=== PATIENT | male | born 2005 | race Caucasian/White ===

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

== ENCOUNTER 2024-06-01 11:48 | Emergency (ER) | payer OTHER, SELFPAY ==
[2024-06-01 12:09] VITALS: BP 138/75; PULSE 48; RESP 18; TEMP 36.7; O2SAT 100; BMI 32.3
--- NOTE | 2024-06-01 12:46 | W.ED.NAVMDI ---
HPI - Nausea/Vomiting/Diarrhea General: Chief complaint: Nausea/Vomiting/Diarrhea Stated complaint: abd. pain, v Time Seen by Provider: 06/01/24 12:36 History of Present Illness: This is a healthy 18-year-old male who presents emergency room with nausea and vomiting. He has some epigastric discomfort. No other abdominal pain. No diarrhea. No fevers. No chest pain. No shortness of breath. No altered mental status. He does report smoking marijuana. Related Data Previous Rx's Medication Instructions Recorded naproxen 500 mg tablet (Naprosyn) 500 mg PO BID PRN pain #20 tabs 06/10/23 ondansetron 8 mg disintegrating 8 mg PO Q6H #14 tabs 06/01/24 tablet Allergies Allergy/AdvReac Type Severity Reaction Status Date / Time No Known Allergies Allergy Verified 06/18/23 14:46 Review of Systems Narrative: Constitutional symptoms: Negative except as documented in HPI. Skin symptoms: Negative except as documented in HPI. Eye symptoms: Negative except as documented in HPI. ENMT symptoms: Negative except as documented in HPI. Respiratory symptoms: Negative except as documented in HPI. Cardiovascular symptoms: Negative except as documented in HPI. Gastrointestinal symptoms: Negative except as documented in HPI. Genitourinary symptoms: Negative except as documented in HPI. Musculoskeletal symptoms: Negative except as documented in HPI. Neurologic symptoms: Negative except as documented in HPI. Psychiatric symptoms: Negative except as documented in HPI. Endocrine symptoms: Negative except as documented in HPI. [facility] PFSH: Medical History No pertinent past medical history Social History Smoking and tobacco/nicotine status: never used tobacco/nicotine Alcohol intake: never Substance/Drug Use: never Physical Exam Narrative: EXAM NARRATIVE: General: Alert, no acute distress. Skin: Warm, dry. Head: Normocephalic, atraumatic. Neck: Supple, trachea midline. Eye: Extraocular movements are intact. Ears, nose, mouth and throat: Tacky oral mucosa Cardiovascular: Regular, Normal peripheral perfusion. Respiratory: Lungs are clear to auscultation, respirations are non-labored, breath sounds are equal, Symmetrical chest wall expansion. Gastrointestinal: Soft, some epigastric discomfort, Non distended Musculoskeletal: Normal ROM, no deformity. Neurological: Alert and oriented, No focal neurological deficit observed. Psychiatric: Cooperative, appropriate mood & affect. Course Vital Signs: Vital signs: Vital Signs Temperature 98.1 F 06/01/24 12:09 Pulse Rate 48 L 06/01/24 12:09 Respiratory Rate 18 06/01/24 12:09 Blood Pressure 138/75 06/01/24 12:09 Pulse Oximetry 100 06/01/24 12:09 Oxygen Delivery Me thod Room Air 06/01/24 12:09 MDM - Nausea/Vomiting/Diarrhea Medical Decision Making Medical decision making: Differential diagnosis for this patient with nausea and vomiting including but not limited to and based on the above HPI, review of systems and physical exam: Urinary tract infection. Appendicitis. Cholecystis. colitis. small bowel obstruction. crohn's flare. pancreatitis. gastritis. peptic ulcer. cyclic vomiting. Viral illness. Influenza. COVID. - Workup - labwork and imaging ordered to evaluate, rule in and rule out above pathologies. Lab Review: Laboratory results were reviewed and interpreted by myself the emergency room physician. Lab work is unremarkable. Mild leukocytosis with white count 13. Hemoglobin mildly high at 16. BUN/creatinine are 14 and 0.9. Drug screen is positive for marijuana. Urinalysis is negative for infection. I reviewed the patient's medical record. Reexamination: Patient does feel quite a bit better at this point. No increased work of breathing. No altered mental status. He has been somnolent. We discussed that this could be hyperemesis related to marijuana use and he expresses understanding. His girlfriend is with him says that she has had that in the past as well. Assessment and plan: Nausea and vomiting Dehydration ? IV Zofran given initially. Then Benadryl and Compazine were given. Also Toradol for his abdominal pain and IV Pepcid. - Discharged home - Discussed plan with patient. Answered any questions. - Evaluation and treatment of this problem were appropriate in the emergency setting. Lab Data 06/01/24 12:48 06/01/24 12:48 Laboratory Results WBC 13.14 10^3/uL (4.5-13.0) H 06/01/24 12:48 RBC 5.30 10^6/uL (3.85-5.65) 06/01/24 12:48 Hgb 16.40 g/dL (13.2-15.6) H 06/01/24 12:48 Hct 46.9 % (37-53) 06/01/24 12:48 MCV 88.5 fl (82-101) 06/01/24 12:48 MCH 30.9 pg (27-33) 06/01/24 12:48 MCHC 35.0 g/dL (30-55) 06/01/24 12:48 RDW 11.9 % (12.1-15.1) L 06/01/24 12:48 Plt Count 208 10^3/cmm (157-399) 06/01/24 12:48 MPV 10.4 fL (7.4-10.4) 06/01/24 12:48 Neut % (Auto) 90.1 % 06/01/24 12:48 Lymph % (Auto) 5.6 % 06/01/24 12:48 [place] % (Auto) 3.3 % 06/01/24 12:48 Eos % (Auto) 0.1 % 06/01/24 12:48 Baso % (Auto) 0.2 % 06/01/24 12:48 Neut # (Auto) 11.84 10^3/uL (1.8-8.0) H 06/01/24 12:48 Lymph # (Auto) 0.7 10^3/uL (1.5-6.5) L 06/01/24 12:48 [place] # (Auto) 0.4 10^3/uL (0.2-0.9) 06/01/24 12:48 Eos # (Auto) 0.0 10^3/uL (0.0-0.8) 06/01/24 12:48 Baso # (Auto) 0.0 10^3/uL (0.0-0.1) 06/01/24 12:48 Nucleated RBC % (auto) 0 % 06/01/24 12:48 Nucleated RBCs # 0.0 /100WBC 06/01/24 12:48 Sodium 137 mmol/L (136-145) 06/01/24 12:48 Potassium 3.5 mmol/L (3.5-5.1) 06/01/24 12:48 Chloride 100 mmol/L (98-107) 06/01/24 12:48 Carbon Dioxide 23 mmol/L (22-29) 06/01/24 12:48 Anion Gap 17.5 (5-19) 06/01/24 12:48 BUN 14 mg/dL (6-20) 06/01/24 12:48 Creatinine 0.9 mg/dL (0.7-1.2) 06/01/24 12:48 GFR Calculation 108.7 mL/min (90-130) 06/01/24 12:48 Glucose 135 mg/dL (65-115) H 06/01/24 12:48 Calculated Osmolality 287 mOsm/kg (285-295) 06/01/24 12:48 Calcium 9.7 mg/dL (8.5-10.5) 06/01/24 12:48 Total Bilirubin 0.5 mg/dL (0.15-1.2) 06/01/24 12:48 AST 15 U/L (0-40) 06/01/24 12:48 ALT 12 U/L (0-41) 06/01/24 12:48 Alkaline Phosphatase 53 U/L (40-130) 06/01/24 12:48 Total Protein 8.0 g/dL (6.6-8.7) 06/01/24 12:48 Albumin 4.8 g/dL (3.5-5.2) 06/01/24 12:48 Globulin 3.2 g/dL (1.3-4.6) 06/01/24 12:48 Urine Color Yellow (Yellow) 06/01/24 13:43 Urine Appearance Clear (CLEAR) 06/01/24 13:43 Urine pH >=9.0 (5-7) A 06/01/24 13:43 Ur Specific [place] 1.019 (1.005-1.030) 06/01/24 13:43 Urine Protein Negative (Negative) 06/01/24 13:43 Urine Glucose (UA) Negative (Normal) 06/01/24 13:43 Urine Ketones 1+ (Negative) H 06/01/24 13:43 Urine Blood Negative (Negative) 06/01/24 13:43 Urine Nitrate Negative (Negative) 06/01/24 13:43 Urine Bilirubin Negative (Negative) 06/01/24 13:43 Urine Urobilinogen 1.0 mg/dL (Negative) 06/01/24 13:43 Ur Leukocyte Esterase Negative (Negative) 06/01/24 13:43 Urine RBC 0-2 /hpf (0-2) 06/01/24 13:43 Urine WBC 0-5 /hpf (0-5) 06/01/24 13:43 Ur Squamous Epith Cells 0-5 /hpf (0-5) 06/01/24 13:43 Amorphous Sediment Not Reportable 06/01/24 13:43 Urine Bacteria None seen /hpf (NONE) 06/01/24 13:43 Hyaline Casts 0.40 /lpf 06/01/24 13:43 Urine Opiates Screen Negative ng/mL (Negative) 06/01/24 13:43 Ur Barbiturates Screen Negative ng/mL (Negative) 06/01/24 13:43 Ur Phencyclidine Scrn Negative ng/mL (Negative) 06/01/24 13:43 Ur Amphetamines Screen Negative ng/mL (Negative) 06/01/24 13:43 U Benzodiazepines Scrn Negative ng/mL (Negative) 06/01/24 13:43 Urine Cocaine Screen Negative ng/mL (Negative) 06/01/24 13:43 U Marijuana (THC) Screen Positive ng/mL (Negative) H 06/01/24 13:43 No radiology studies performed this visit Discharge Plan Discharge Patient Disposition: Home Clinical Impression: Vomiting, Dehydration Condition: Stable Prescriptions: New ondansetron 8 mg tablet,disintegrating 8 mg PO Q6H Qty: 14 0RF Rx Instructions: Take 1/2-1 tab every 6 hours as needed for nausea and vomiting No Action Naprosyn 500 mg tablet 500 mg PO BID PRN (Reason: pain) Qty: 20 0RF Discharge Orders: Discharge ED (Routine); Ordered 06/01/24 Ordered By: Анна Shah Discharge Diet: Advance as tolerated Discharge Activity: Increase activity as tolerated Patient Instructions: Acute Nausea and Vomiting (ED) Activity Restrictions/Additional Instructions: Thank you for choosing [facility] for your healthcare needs today. Please realize this is an emergency room and that we are providing you with a medical screening exam and this may not be complete and all inclusive of all the testing and or work up that you may need to determine your ailment or severity of your illness. You have been screened and evaluated and felt safe for discharge. Health conditions do change or evolve sometimes and as such it is important that you follow up with your Primary Doctor to be re checked, 3-5 days is a general good time frame for follow up. You are always welcome to return to the ED for re assessment if your symptoms are worsening or you have new concerns Coding Level of Care Code ED Human Resources Administrator for Emir Starks
[2024-06-01] MEDS: sodium chloride 0.9% 1,000 ML 999 ML IV (12:49)
[2024-06-01] MEDS: ondansetron 2 mg/ML SDV 2 mL 8 MG IVP (12:49)
[2024-06-01 12:53] LABS: Basophils % 0.2 %; Eosinophils % 0.1 %; Hematocrit 46.9 % (37-53); Lymphocytes # 0.7 10^3/uL (1.5-6.5); Lymphocytes % 5.6 %; Mean Corpuscular Hemoglobin 30.9 pg (27-33); Mean Corpuscular Volume 88.5 fl (82-101); Mean Platelet Volume 10.4 fL (7.4-10.4); Monocytes # 0.4 10^3/uL (0.2-0.9); Monocytes % 3.3 %; Neutrophils # 11.84 10^3/uL (1.8-8.0); Neutrophils % 90.1 %; Nucleated Red Blood Cells % 0 %; Platelet Count 208 10^3/cmm (157-399); Red Cell Distribution Width 11.9 % (12.1-15.1); White Blood Count 13.14 10^3/uL (4.5-13.0)
[2024-06-01 13:11] LABS: Alanine Aminotransferase 12 U/L (0-41); Albumin Level 4.8 g/dL (3.5-5.2); Alkaline Phosphatase 53 U/L (40-130); Anion Gap 17.5 (5-19); Aspartate Amino Transferase 15 U/L (0-40); Blood Urea Nitrogen 14 mg/dL (6-20); Calcium 9.7 mg/dL (8.5-10.5); Carbon Dioxide 23 mmol/L (22-29); Chloride 100 mmol/L (98-107); Creatinine Clr Calc Pharmacy 158.0155; Globulin 3.2 g/dL (1.3-4.6); Glomerular Filtration Rate 108.7 mL/min (90-130); Glucose 135 mg/dL (65-115); Osmolality Calculated 287 mOsm/kg (285-295); Potassium 3.5 mmol/L (3.5-5.1); Sodium 137 mmol/L (136-145); Total Bilirubin 0.5 mg/dL (0.15-1.2)
[2024-06-01 13:54] LABS: Bilirubin Urine Negative (Negative); Blood Urine Negative (Negative); Glucose Urine UA Negative (Normal); Ketones Urine 1+ (Negative); Leukocyte Esterase Urine Negative (Negative); Nitrate Urine Negative (Negative); Protein Urine Negative (Negative); Specific Gravity, Urine 1.019 (1.005-1.030); Urine Appearance Clear (CLEAR); Urine Color Yellow (Yellow); pH Urine >=9.0 (5-7)
[2024-06-01 13:59] LABS: Add Urine Microscopic? YES; Bacteria Urine None Seen /hpf; RBC Urine 0-2 /hpf (0-2); Squamous Epithelial Cell Urine 0-5 /hpf (0-5); WBC Urine 0-5 /hpf (0-5)
[2024-06-01 14:05] LABS: Amphetamines Screen Urine Negative (Negative); Barbiturates Screen Urine Negative (Negative); Benzodiazepines Screen Urine Negative (Negative); Cocaine Screen Urine Negative (Negative); Opiate Screen Urine Negative (Negative); PCP Screen Urine Negative (Negative); THC Screen Urine Positive (Negative)
[2024-06-01] MEDS: diphenhydrAMINE 50 mg/mL SDV 1mL IVP (14:13)
[2024-06-01] MEDS: prochlorperazine 10 mg/2 mL Inj IVP (14:14)
[2024-06-01] MEDS: ketorolac 30 mg/mL INJ IVP (14:16)
[2024-06-01] MEDS: famotidine 20 mg/2 mL INJ 40 MG IVP (14:16)
[2024-06-01 16:24] VITALS: BP 160/80; PULSE 49; RESP 17; O2SAT 100
== END 2024-06-01 16:26 | disposition home or self-care (01) ==
PROVIDERS: Emergency Medicine; Emergency Provider Emergency Medicine
DX: R11.11 Vomiting without nausea (principal); E86.0 Dehydration
CPT/HCPCS: 80053; 80306; 81001; 85025; 96374; 96375; 99284; J0780; J1200; J1885; J2405; J3490; J7030

== ENCOUNTER 2024-10-10 08:38 | Emergency (ER) | payer OTHER, SELFPAY ==
[2024-10-10 08:59] VITALS: BP 120/57; PULSE 50; RESP 16; TEMP 36.4; O2SAT 98; BMI 33.0
--- NOTE | 2024-10-10 09:21 | W.ED.NAVMDI ---
HPI - Nausea/Vomiting/Diarrhea General: Chief complaint: Nausea/Vomiting/Diarrhea Stated complaint: vomitting Time Seen by Provider: 10/10/24 08:44 History of Present Illness: 19-year-old male presents emergency room with complaints of persistent nausea vomiting abdominal pain and cramping patient regularly uses marijuana he has a history of cannabinoid hyperemesis syndrome. He denies any medic easy melena hematemesis coffee-ground emesis. Symptoms began overnight. He last smoked marijuana last night he has had recurrent bilious vomiting. Associated nausea: Yes Associated symtoms: Reports nausea; Denies chest pain or dysuria Related Data Home Medications ?Medication ?Instructions ?Recorded ?Confirmed acetaminophen 325 mg tablet 325 mg PO QID PRN Pain 10/10/24 10/10/24 Previous Rx's ?Medication ?Instructions ?Recorded lorazepam 2 mg tablet (Ativan) 2 mg buccal TID PRN nausea and 10/10/24 vomiting #10 tabs olanzapine 10 mg disintegrating 10 mg PO Q8H PRN nausea and 10/10/24 tablet vomiting #10 tabs Allergies Allergy/AdvReac Type Severity Reaction Status Date / Time No Known Allergies Allergy Verified 10/03/24 16:08 Review of Systems Const: Denies: fever(s) or chills Card: Denies: chest pain Resp: Denies: dyspnea GI: Reports: abdominal pain, nausea and vomiting : Denies: dysuria, urinary frequency or urinary urgency Musc: Denies: neck pain or back pain Skin/Breast: Denies: rash PFSH ED PFSH: Medical History No pertinent past medical history Social History Smoking and tobacco/nicotine status: never used tobacco/nicotine Alcohol intake: never Substance/Drug Use: never Physical Exam Const: GENERAL APPEARANCE: cooperative ORIENTATION/CONSCIOUSNESS: Yes awake, Yes oriented to person, Yes oriented to place and Yes oriented to time HENMT: COMMON NORMALS: normocephalic, atraumatic and hearing grossly normal bilaterally HEAD & SCALP: normocephalic and atraumatic Resp: COMMON NORMALS: normal respiratory effort, No retractions, No use of accessory muscles and clear to auscultation bilaterally AUSCULTATION: clear to auscultation bilaterally Cardio: COMMON NORMALS: regular rate, regular rhythm and No murmurs present (Cardio) RATE: regular rate RHYTHM: regular rhythm GI: COMMON NORMALS: Soft to palpation and No hepatosplenomegaly present AUSCULTATION: Yes normoactive bowel sounds PALPATION: Yes Soft to palpation, No Tenderness to palpation present (GI), No Guarding due to palpation present (GI) and Yes No hepatosplenomegaly present Extremity: COMMON NORMALS: normal to inspection, capillary refill normal, no clubbing, cyanosis or edema, no calf tenderness and no pedal edema Neuro: SENSORIUM/ORIENTATION: Yes oriented to person, Yes oriented to place and Yes oriented to time Skin: COMMON NORMALS: no rashes or lesions noted GENERAL SKIN EXAM: no rashes or lesions noted Course Vital Signs: Vital signs: Vital Signs Temperature 97.5 F L 10/10/24 08:59 Pulse Rate 50 L 10/10/24 08:59 Respiratory Rate 16 10/10/24 08:59 Blood Pressure 120/57 10/10/24 08:59 Pulse Oximetry 98 10/10/24 08:59 Oxygen Delivery Me thod Room Air 10/10/24 08:59 MDM - Nausea/Vomiting/Diarrhea Medical Decision Making Improved after IV fluids Ativan and Haldol. Patient is amatory to get somewhat bradycardic he says he has had this in the past he is asymptomatic evident his blood pressure remained stable we will discharge him home with sublingual olanzapine and buccal Ativan to use as needed encouraged to decrease use of THC products Medical Records I reviewed the patient's medical records. Lab Data I reviewed the patient's lab results. 10/10/24 09:10 10/10/24 09:10 Laboratory Results WBC 11.98 10^3/uL (4.5-13.0) 10/10/24 09:10 RBC 5.17 10^6/uL (3.85-5.65) 10/10/24 09:10 Hgb 15.80 g/dL (13.2-15.6) H 10/10/24 09:10 Hct 46.0 % (37-53) 10/10/24 09:10 MCV 89.0 fl (82-101) 10/10/24 09:10 MCH 30.6 pg (27-33) 10/10/24 09:10 MCHC 34.3 g/dL (30-55) 10/10/24 09:10 RDW 12.0 % (12.1-15.1) L 10/10/24 09:10 Plt Count 261 10^3/cmm (157-399) 10/10/24 09:10 MPV 10.6 fL (7.4-10.4) H 10/10/24 09:10 Neut % (Auto) 84.4 % 10/10/24 09:10 Lymph % (Auto) 10.1 % 10/10/24 09:10 [place] % (Auto) 3.7 % 10/10/24 09:10 Eos % (Auto) 0.8 % 10/10/24 09:10 Baso % (Auto) 0.3 % 10/10/24 09:10 Neut # (Auto) 10.13 10^3/uL (1.8-8.0) H 10/10/24 09:10 Lymph # (Auto) 1.2 10^3/uL (1.5-6.5) L 10/10/24 09:10 [place] # (Auto) 0.4 10^3/uL (0.2-0.9) 10/10/24 09:10 Eos # (Auto) 0.1 10^3/uL (0.0-0.8) 10/10/24 09:10 Baso # (Auto) 0.0 10^3/uL (0.0-0.1) 10/10/24 09:10 Nucleated RBC % (auto) 0 % 10/10/24 09:10 Nucleated RBCs # 0.0 /100WBC 10/10/24 09:10 Sodium 139 mmol/L (136-145) 10/10/24 09:10 Potassium 4.3 mmol/L (3.5-5.1) 10/10/24 09:10 Chloride 99 mmol/L (98-107) 10/10/24 09:10 Carbon Dioxide 23 mmol/L (22-29) 10/10/24 09:10 Anion Gap 21.3 (5-19) H 10/10/24 09:10 BUN 14 mg/dL (6-20) 10/10/24 09:10 Creatinine 0.9 mg/dL (0.7-1.2) 10/10/24 09:10 GFR Calculation 107.6 mL/min (90-130) 10/10/24 09:10 Glucose 169 mg/dL (65-115) H 10/10/24 09:10 Calculated Osmolality 292 mOsm/kg (285-295) 10/10/24 09:10 Calcium 10.1 mg/dL (8.5-10.5) 10/10/24 09:10 Total Bilirubin 0.4 mg/dL (0.15-1.2) 10/10/24 09:10 AST 19 U/L (0-40) 10/10/24 09:10 ALT 15 U/L (0-41) 10/10/24 09:10 Alkaline Phosphatase 58 U/L (40-130) 10/10/24 09:10 Total Protein 8.1 g/dL (6.6-8.7) 10/10/24 09:10 Albumin 5.0 g/dL (3.5-5.2) 10/10/24 09:10 Globulin 3.1 g/dL (1.3-4.6) 10/10/24 09:10 Lipase 17 U/L (13-60) 10/10/24 09:10 Urine Color Yellow (Yellow) 10/10/24 10:02 Urine Appearance Clear (CLEAR) 10/10/24 10:02 Urine pH >=9.0 (5-7) A 10/10/24 10:02 Ur Specific [place] 1.027 (1.005-1.030) 10/10/24 10:02 Urine Protein 1+ (Negative) A 10/10/24 10:02 Urine Glucose (UA) Trace (Normal) H 10/10/24 10:02 Urine Ketones 2+ (Negative) H 10/10/24 10:02 Urine Blood Negative (Negative) 10/10/24 10:02 Urine Nitrate Negative (Negative) 10/10/24 10:02 Urine Bilirubin Negative (Negative) 10/10/24 10:02 Urine Urobilinogen 1.0 mg/dL (Negative) 10/10/24 10:02 Ur Leukocyte Esterase Negative (Negative) 10/10/24 10:02 Urine RBC 0-2 /hpf (0-2) 10/10/24 10:02 Urine WBC 0-5 /hpf (0-5) 10/10/24 10:02 Ur Squamous Epith Cells 0-5 /hpf (0-5) 10/10/24 10:02 Amorphous Sediment Not Reportable 10/10/24 10:02 Urine Bacteria None seen /hpf (NONE) 10/10/24 10:02 Hyaline Casts 2.46 /lpf 10/10/24 10:02 All radiology interpretation(s) finalized by discharge Discharge Plan Discharge Patient Disposition: Home Clinical Impression: Cannabinoid hyperemesis syndrome Condition: Stable Prescriptions: New olanzapine 10 mg tablet,disintegrating 10 mg PO Q8H PRN (Reason: nausea and vomiting) Qty: 10 0RF lorazepam [Ativan] 2 mg tablet 2 mg buccal TID PRN (Reason: nausea and vomiting) Qty: 10 0RF No Action acetaminophen 325 mg Tablet 325 mg PO QID PRN (Reason: Pain) Discharge Orders: Discharge ED (Routine); Ordered 10/10/24 Ordered By: Elmer Ochoa Discharge Diet: Advance as tolerated and Clear Liquid Discharge Activity: Increase activity as tolerated Patient Instructions: Opioid Safety, Pain Management Activity Restrictions/Additional Instructions: Thank you for choosing [facility] for your healthcare needs today. It is very important that you follow up as instructed or that you return to the Emergency Department should you have concerns or if your condition changes or worsens in any way. You are seen in the emergency room for cannabinoid hyperemesis. You did respond well to medications. You were given lorazepam and olanzapine to use as needed for recurrent symptoms. Print Language: Turkmen Coding Level of Care Code ED Manager Express for Emir Starks
[2024-10-10 09:31] LABS: Basophils % 0.3 %; Eosinophils # 0.1 10^3/uL (0.0-0.8); Eosinophils % 0.8 %; Lymphocytes # 1.2 10^3/uL (1.5-6.5); Lymphocytes % 10.1 %; Mean Corpuscular HGB Conc 34.3 g/dL (30-55); Mean Corpuscular Hemoglobin 30.6 pg (27-33); Mean Platelet Volume 10.6 fL (7.4-10.4); Monocytes # 0.4 10^3/uL (0.2-0.9); Monocytes % 3.7 %; Neutrophils # 10.13 10^3/uL (1.8-8.0); Neutrophils % 84.4 %; Nucleated Red Blood Cells % 0 %; Platelet Count 261 10^3/cmm (157-399); Red Blood Count 5.17 10^6/uL (3.85-5.65); White Blood Count 11.98 10^3/uL (4.5-13.0)
[2024-10-10 09:44] LABS: Alanine Aminotransferase 15 U/L (0-41); Alkaline Phosphatase 58 U/L (40-130); Anion Gap 21.3 (5-19); Aspartate Amino Transferase 19 U/L (0-40); Blood Urea Nitrogen 14 mg/dL (6-20); Calcium 10.1 mg/dL (8.5-10.5); Carbon Dioxide 23 mmol/L (22-29); Chloride 99 mmol/L (98-107); Creatinine Clr Calc Pharmacy 158.3896; Globulin 3.1 g/dL (1.3-4.6); Glomerular Filtration Rate 107.6 mL/min (90-130); Glucose 169 mg/dL (65-115); Lipase 17 U/L (13-60); Osmolality Calculated 292 mOsm/kg (285-295); Potassium 4.3 mmol/L (3.5-5.1); Sodium 139 mmol/L (136-145); Total Bilirubin 0.4 mg/dL (0.15-1.2); Total Protein 8.1 g/dL (6.6-8.7)
[2024-10-10 10:11] LABS: Bilirubin Urine Negative (Negative); Blood Urine Negative (Negative); Glucose Urine UA Trace (Normal); Ketones Urine 2+ (Negative); Leukocyte Esterase Urine Negative (Negative); Nitrate Urine Negative (Negative); Protein Urine 1+ (Negative); Specific Gravity, Urine 1.027 (1.005-1.030); Urine Appearance Clear (CLEAR); Urine Color Yellow (Yellow); pH Urine >=9.0 (5-7)
[2024-10-10 10:16] LABS: Add Urine Microscopic? YES; Bacteria Urine None Seen /hpf; Hyaline Casts Urine 2.46 /lpf; RBC Urine 0-2 /hpf (0-2); Squamous Epithelial Cell Urine 0-5 /hpf (0-5); WBC Urine 0-5 /hpf (0-5)
[2024-10-10] MEDS: haloperidol inj 5 mg/mL INJ 1 mL 2.5 MG IVP (10:20)
[2024-10-10] MEDS: LORazepam 2 mg/mL INJ 1 mL 1 MG IVP (10:24)
[2024-10-10] MEDS: sodium chloride 0.9% 1,000 ML 999 ML IV (11:10)
[2024-10-10 11:37] VITALS: BP 106/69; PULSE 58; RESP 16; O2SAT 96
== END 2024-10-10 11:40 | disposition home or self-care (01) ==
PROVIDERS: Emergency Provider Family Medicine
DX: R11.2 Nausea with vomiting, unspecified (principal)
CPT/HCPCS: 36415; 80053; 81001; 83690; 85025; 96374; 96375; 99284; J1630; J2060; J7030

== ENCOUNTER 2025-03-13 15:10 | Emergency (ER) | payer OTHER, SELFPAY ==
--- OUTSIDE RECORDS SUMMARY | 2024-10-28 08:00 | XMS_ITS ---
Author Organization [facility] [facility] edicine Address [address] [place] [address] Care Team Providers Care Associate Juvenile Court Judge Name Role Phone Aurea Perez Unavailable [phone] Allergies No Known Allergies REASON FOR VISIT VIDAL-IBC DH PRE EMP PHYS w/ PDT no DOT D/S, * Johnson Pre Emp NO DRUG SCREEN, * Johnson Pre-Employment Social History Tobacco Use: Social History Observation Description Date Details (start date - stop date) Unknown Smoking Question Answer Notes Smoking Status: Uses tobacco in other forms vape Vital Signs Heart Rate 63 /min 10/28/2024 Blood pressure systolic 130 mm Hg 10/29/19 25 Blood pressure diastolic 74 mm Hg 025 Height 71 in 10/28/2024 Weight 244.8 lbs 10/28/2024 BMI 34.14 kg/m2 10/28/2024 Respiratory Rate 18 /min 10/28/2024 Oximetry 96 % 10/28/2024 Procedures Procedure Date Ordered Date Performed Result Body Sit e Vision Screening 10/28/2024 N/A Hearing Screening 10/28/2024 10/28/2024 N/A BTE 10/28/2024 10/28/2024 N/A Encounters Encounter Location Date Provider Diagnosis [facility] [address] [place] [address] 10/28/2024 Aureaerika Perez Pre-employment health screening examination Z02.1 Assessments Encounter Date Diagnosis (ICD Code) Assessment Notes Treatment Notes Treatment Clinical Notes Section Notes 10/28/2024 Pre-employment health screening examination (ICD-10 - Z02.1) Plan Of Treatment Pending Test Test Name Order Date Urinalysis, Routine 10/28/2024 Vision Screening 10/28/2024 Hearing Screening 10/28/2024 Next Appt Details Follow Up: Clear for PDT , R reece: Progress Notes * Christophe GIANG JDOB: [birth year] (19 yo M)Acc No.[id number]:10/28/2024 PRE EMP HWM Patient: Christophe MILLER Provider: Umesh Perez :2005 A ge:19 Y S ex:Male Date:10/28/2024 Address:[address] [place], [place] [id number] Subjective: * Chief Complaints: * 1 . VIDAL-IBC DH PRE EMP PHYS w/ PDT no DOT D/S. 2. * Johnson Pre Emp NO DRUG SCREEN. 3. * Johnson Pre-Employment. * HPI: A DDITIONAL COMPLAINTS: Patient presents for pre-employment physical evaluation. Medical history forms and any accompanying health records are reviewed with the patients. * ROS: G eneral/Constitutional: Denies C hange in appetite. D enies C hills. D enies F atigue. D enies F ever. D enies H eadache. D enies L ightheadedness. D enies S leep disturbance. D eleazar Review: Reviewed H ealth Records. R espiratory: Denies B reathing pattern. D enies C hest pain.?Denies C ough. D enies H emoptysis. D enies P ain with inspiration. D enies S hortness of breath at rest. D enies S hortness of breath with exertion. D enies?Sputum production. D enies W heezing. G astrointestinal: Denies A bdominal pain. D enies B lood in stool.?Denies C hange in bowel habits. D enies C onstipation. D enies D iarrhea.?Denies D ifficulty swallowing. D enies N ausea. D enies V omiting. ? N eurologic: Denies B alance difficulty. D enies C oordination.?Denies D ifficulty speaking. D enies D izziness. D enies F ainting. D enies G ait abnormality. D enies I rritability. D enies L oss of strength. D enies L oss of use of extremity. D enies L ow back pain. D enies P ain. D enies S eizures. D enies T ingling/Numbness. D enies T ransient loss of vision.?Denies T remor. P sychiatric: Denies A nxiety. D enies D epressed mood. D enies D ifficulty sleeping. D enies E ating disorder. D enies L oss of appetite.?Denies S tressors. D enies S ubstance abuse. D enies S uicidal thoughts. * Medical History: B roken collar bone. * Surgical History: D enies Past Surgical History. * Hospitalization/Major Diagno stic Procedure: D enies Past Hospitalization. * Family History: N on-Contributory. * Social History: T obacco Use: S moking S moking Status: U ses tobacco in other forms vape * Medications: N one * Allergies: N .K.D.A. Objective: * Vitals: H R:63, BP:130/74mm Hg, Ht: 71, Wt: 244.8, BMI:34.14Index, RR: 18, Oxygen sat %:96%. * Examination: G eneral Examination: GENERAL APPEARANCE: i n no acute distress, well developed, well nourished. HEAD: n ormocephalic, atraumatic. EYES: p upils equal, round, reactive to light and accommodation. EARS: n ormal. ORAL CAVITY: m ucosa moist. THROAT: c lear. NECK/THYROID: n matheus supple, full range of motion, no cervical lymphadenopathy. SKIN: n o suspicious lesions, warm and dry. HEART: n o murmurs, regular rate and rhythm, S1, S2 normal.? LUNGS: c lear to auscultation bilaterally. ABDOMEN: n ormal, bowel sounds present, soft, nontender, nondistended, no hernias noted on exam.. EXTREMITIES: n o clubbing, cyanosis, or edema, full range of motion, no painful joints. NEUROLOGIC: n onfocal, motor strength normal upper and lower extremities, sensory exam intact. Assessment: * Assessment: 1. P re-employment health screening examination - Z02.1 (Primary) Plan: * Treatment: * Labs: * L ab: Urinalysis, Routine (Collection Date & Time - 10/28/2024) Value Reference Range U rine-Color yellow * A ppearance clear * S pecific Slater 1.025 * p H 7.0 * G lucose neg * P rotein neg * O ccult Blood trace-intact * B ilirubin neg * U robilinogen,Semi-Qn 0.2 * N itrite, Urine neg * K etones neg * W BC Esterase neg * abnormal resultsHamblin, Corina vernon 10/28/2024 01:40:03 PM BROACH OPERATOR > * Procedure Orders: * P rocedure: Vision Screening ?Procedure: Hearing Screening (Performed Date - 10/28/2024)* Value Reference Range H z 500 Left 5 * H z 1000 Left 5 * H z 2000 Left 0 * H z 3000 Left 0 * H z 4000 Left 5 * H z 6000 Left 0 * H z 8000 Left 5 * H z 500 Right 5 * H z 1000 Right 5 * H z 2000 Right 0 * H z 3000 Right 0 * H z 4000 Right 0 * H z 6000 Right 0 * H z 8000 Right 0 * completed unaidedHamblin, Ab igail 10/28/2024 01:41:59 PM BROACH OPERATOR > ?Procedure: BTE (Performed Date - 10/28/2024)* Value Reference Range B TE Results Pass * LouiseLi juarez 10/28/2024 03 :22:13 PM BROACH OPERATOR > Pass * Procedure Codes: P HYSI Physical Exam, BTE Physical Demands Test, HEARS HEARING SCREEN, VISIS VISION SCREEN, 19447 URINALYSIS, AUTO, W/O SCOPE, Modifiers: QW * Follow Up: Jil choi for PDT * Billing Information: * Visit Code: * Procedure Codes: PHYSI Physical Exam. BTE Physical Demands Test. HEARS HEARING SCREEN. VISIS VISION SCREEN. 09699 URINALYSIS, AUTO, W/O SCOPE. Modifiers: QW * Electronic signature of Sandra Perez NP on 03/13/2025 at 03:16 PM CDT Sign off status: Pending * Provider: Umesh Perez Date: 0 10/28/2024 Generated for Marquita suarez/Faxing/eTransmitting on: 0 03/13/2025 03:16 PM CDT History and Physical Notes * HPI (History of Present Illness) Category Sub-Category Detail Notes Category Not es ADDITIONAL COMPLAINTS Patien t presents for pre-employment physical evaluation. Medical history forms and any accompanying health records are reviewed with the patients. Examination Category Sub-Category Detail Notes Category Not es General Examination GENERAL APPEARANCE: in no ac [place] distress, well developed, well nourished HEAD: normocephalic, atrau matic EYES: pupils equal, round, reactive to light and accommodation EARS: normal THROAT: clear NECK/THYROID: neck supple, full ra nge of motion, no cervical lymphadenopathy HEART: no murmurs, regular rate and rhythm, S1, S2 normal LUNGS: clear to auscultatio n bilaterally ABDOMEN: normal, bowel sounds present, soft, nontender, nondistended, no hernias noted on exam. NEUROLOGIC: nonfocal, motor stre ngth normal upper and lower extremities, sensory exam intact SKIN: no suspicious lesion s, warm and dry EXTREMITIES: no clubbing, cyanosi s, or edema, full range of motion, no painful joints ORAL CAVITY: mucosa moist
--- OUTSIDE RECORDS SUMMARY | 2025-03-13 15:15 | XMS_ITS | Continuity of Care Document ---
Author Name [facility] Organization [facility] Care Team Providers Care Aviation Neuropsychologist Name Role Phone [facility] Unavailable Unavailable Social History Combined list of available smoking, tobacco, and other social history from Department of Defense and Veterans Affairs facilities. Social History Type Response Date Comment Sourc e This section is an empty social history section. DoD
--- OUTSIDE RECORDS SUMMARY | 2025-03-13 15:16 | XMS_ITS | Patient Health Record ---
Author Organization [facility] edicine Address [address] [place] [address] Care Team Providers Care Wellness Educator Name Role Phone Aurea Perez Unavailable [phone] Allergies No Known Allergies Reason For Referral No Information Social History Tobacco Use: Social History Observation Description Date Details (start date - stop date) Unknown Smoking Question Answer Notes Smoking Status: Uses tobacco in other forms vape Vital Signs Heart Rate 63 /min 10/28/2024 Respiratory Rate 18 /min 10/28/2024 Oximetry 96 % 10/28/2024 Blood pressure diastolic 74 mm Hg 10/28/2024 Height 71 in 10/28/2024 Blood pressure systolic 130 mm Hg 10/28/2024 Weight 244.8 lbs 10/28/2024 BMI 34.14 kg/m2 10/28/2024 Procedures Procedure Date Ordered Date Performed Result Body Sit e Vision Screening 10/28/2024 N/A Hearing Screening 10/28/2024 10/28/2024 N/A BTE 10/28/2024 10/28/2024 N/A Encounters Encounter Location Date Provider Diagnosis [address] [place] [address] 10/28/2024 Aurea Perez Pre-employment health screening examination Z02.1 Assessments Encounter Date Diagnosis (ICD Code) Assessment Notes Treatment Notes Treatment Clinical Notes Section Notes 10/28/2024 Pre-employment health screening examination (ICD-10 - Z02.1) Plan Of Treatment Pending Test Test Name Order Date Urinalysis, Routine 10/28/2024 Vision Screening 10/28/2024 Hearing Screening 10/28/2024 Insurance Providers Payer Name Payer Address Payer Phone Subscriber Number Group Number Insured Name Patient Relationship to Insured Coverage Start Date Coverage End Date [employer] Pre-Emp Alexey Santoyo/Barber carmona Christophe Giang Self - patient is the insured Medical (General) History Medical History History ICD Code broken collar bone
[2025-03-13 15:24] VITALS: BP 141/84; PULSE 79; RESP 16; TEMP 36.6; O2SAT 98; BMI 30.1
[2025-03-13 16:54] LABS: Hematocrit 48.8 % (37-53); Hemoglobin 17.10 g/dL (13.2-15.6); Mean Corpuscular HGB Conc 35.0 g/dL (30-55); Mean Corpuscular Hemoglobin 30.4 pg (27-33); Mean Corpuscular Volume 86.7 fl (82-101); Nucleated Red Blood Cells % 0 %; Platelet Count 281 10^3/cmm (157-399); Red Blood Count 5.63 10^6/uL (3.85-5.65); White Blood Count 19.82 10^3/uL (4.5-13.0)
[2025-03-13] MEDS: LORazepam 1 MG/0.5 ML injection IVP (17:06)
[2025-03-13] MEDS: haloperidol inj 5 mg/mL INJ 1 mL IVP (17:06)
[2025-03-13 17:14] LABS: Alanine Aminotransferase 17 U/L (0-41); Albumin Level 5.1 g/dL (3.5-5.2); Alkaline Phosphatase 73 U/L (40-130); Anion Gap 27.6 (5-19); Aspartate Amino Transferase 24 U/L (0-40); Blood Urea Nitrogen 24 mg/dL (6-20); Calcium 11.2 mg/dL (8.5-10.5); Carbon Dioxide 20 mmol/L (22-29); Chloride 92 mmol/L (98-107); Creatinine Clr Calc Pharmacy 91.0018; Globulin 4.0 g/dL (1.3-4.6); Glucose 151 mg/dL (65-115); Osmolality Calculated 289 mOsm/kg (285-295); Potassium 3.6 mmol/L (3.5-5.1); Sodium 136 mmol/L (136-145); Total Protein 9.1 g/dL (6.6-8.7)
[2025-03-13 17:45] VITALS: BP 124/65; PULSE 49; O2SAT 100
--- NOTE | 2025-03-13 18:14 | ED_ITS ---
HPI - Nausea/Vomiting/Diarrhea 2 General: Chief complaint: Nausea/Vomiting/Diarrhea Stated complaint: Heat exhausion Time Seen by Provider: 03/13/25 16:08 History of Present Illness: 19-year-old male presents to the ED with complaint of vomiting and body aches. 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 He denies loss of consciousness but describes his legs becoming numb and feeling weak. After the episode, he reports his whole body was aching. He went to the bathroom, took a shower, and has been vomiting ever since. Patient self-identifies his condition as cannabinoid hyperemesis syndrome (CHS), stating this is his third episode. His last episode occurred approximately six months ago. He reports that during previous episodes, he was treated with a combination of medications that helped resolve his symptoms. Patient admits to daily cannabis use, including use today. He has attempted hot showers for symptom relief without improvement during this episode. Related Data Home Medications ?Medication ?Instructions ?Recorded ?Confirmed acetaminophen 325 mg tablet 325 mg PO QID PRN Pain 10/10/24 Previous Rx's ?Medication ?Instructions ?Recorded lorazepam 2 mg tablet (Ativan) 2 mg buccal TID PRN [place] and 10/10/24 vomiting #10 tabs olanzapine 10 mg disintegrating 10 mg PO Q8H PRN nause a and 10/10/24 tablet vomiting #10 tabs Allergies Allergy/AdvReac Type Severity Reaction Status Date / Time No Known Allergies Allergy Verified 03/13/25 15:27 [facility] ED 2 [facility]: Medical History (Updated 03/13/25 @ 18:15 by Adan Cooper MD) No pertinent past medical history Social History Smoking and tobacco/nicotine status: never used tobacco/nicotine Alcohol intake: never Substance/Drug Use: never Physical Exam 2 Const: COMMON NORMALS: no acute distress, average body habitus, alert and well nourished GENERAL APPEARANCE: cooperative ORIENTATION/CONSCIOUSNESS: Yes awake HENMT: COMMON NORMALS: normocephalic and atraumatic HEAD & SCALP: n ormocephalic and atraumatic Eye: COMMON NORMALS: conjunctivae normal CONJUNCTIVA: Yes conjunctivae normal Neck/C-Spine: GENERAL: Yes normal visual inspection Resp: COMMON NORMALS: normal respiratory effort, No retractions and No use of accessory muscles Cardio: COMMON NORMALS: regular rhythm and Peripheral pulses 2+ throughout RHYTHM: regular rhythm PERIPHERAL PULSES: Peripheral pulses 2+ throughout GI: COMMON NORMALS: Soft to palpation and non-tender PALPATION: Yes Soft to palpation Extremity: COMMON NORMALS: full ROM and no pedal edema Neuro: COMMON NORMALS: no focal motor deficits SENSORIUM/ORIENTATION: Yes alert Skin: COMMON NORMALS: no rashes or lesions noted GENERAL SKIN EXAM: no rashes or lesions noted Course 2 Vital Signs: Vital signs: Vital Signs Temperature 97.8 F 03/13/25 15:24 Pulse Rate 49 L 03/13/25 17:45 Respiratory Rate 16 03/13/25 15:24 Blood Pressure 124/65 03/13/25 17:45 Pulse Oximetry 100 03/13/25 17:45 Oxygen Delivery Me thod Room Air 03/13/25 15:24 MDM - Nausea/Vomiting/Diarrhea Medical Decision Making ROS: Constitutional: Positive for weakness and body aches. Gastrointestinal: Positive for vomiting. Neurological: Positive for leg numbness. All other systems reviewed and negative. MEDICATIONS AND ALLERGIES: - Meds: None reported - Allergies: No known drug allergies PAST HISTORICAL DATA: - PMH: History of cannabinoid hyperemesis syndrome with two prior episodes - PSH: No surgical history reported - Social: Daily cannabis use, denies cigarette use, denies other drug use VITAL SIGNS: No specific vital signs were verbalized during the encounter. PHYSICAL EXAM: General: Alert, appears uncomfortable due to nausea/vomiting and pain. HEENT: Head normocephalic and atraumatic. Mucous membranes moist. Neck: Supple Respiratory: No increased work of breathing, no wheezing Cardiac: Regular rate and rhythm, 2+ pulses in all extremities Abdomen: Soft, non-distended, no rebound or guarding Neuro: Cranial nerves grossly intact, no focal motor or sensory deficits noted INITIAL IMPRESSION AND PLAN: Given the history and presentation, the primary working diagnosis is cannabinoid hyperemesis syndrome with dehydration. Additional considerations include heat exhaustion given his history of working on a roof and subsequent collapse, acute gastroenteritis, and other causes of vomiting. Based on this initial impression I will order: 1. IV fluid hydration with normal saline 2. Antiemetic medication 3. Pain management 4. Laboratory studies to assess for dehydration and electrolyte abnormalities 5. Sedation with Haldol and Versed for symptom control TEST INTERPRETATIONS: - CBC: WBC 19,000, hemoglobin 17 - consistent with hemoconcentration due to dehydration - BMP: BUN 24, creatinine 1.5 - consistent with dehydration PROCEDURES: - IV access established - IV fluid administration: 2 liters of normal saline CONSIDERED BUT NOT PERFORMED: Additional diagnostic imaging (CT abdomen/pelvis) CONSIDERED but NOT DONE due to classic presentation of cannabinoid hyperemesis syndrome with appropriate response to treatment and no concerning features for alternative diagnoses. OTC medications/interventions recommended included: Discontinuation of cannabis use to prevent recurrence of symptoms. FINAL IMPRESSION: Based on all the above, my clinical impression is most compatible with cannabinoid hyperemesis syndrome with dehydration. The patient also experienced possible heat exhaustion earlier in the day which may have exacerbated his condition. The clinical picture is not currently suggestive of acute abdomen, bowel obstruction, or intracranial pathology. Although other conditions were also considered, they were deemed unlikely based on the clinical information available. CLINICAL DISPOSITION: The patient's current condition is stable and improved in my estimation and the most appropriate and indicated disposition at this time is discharge home. RATIONALE: Patient is appropriate for discharge as he has shown significant clinical improvement following IV hydration and medication administration. His symptoms have resolved, he is no longer actively vomiting, and he feels comfortable going home. Laboratory abnormalities were consistent with dehydration which has been adequately treated. The patient has experienced similar episodes in the past and recognizes the condition, understanding the importance of cannabis cessation. He has no concerning vital sign abnormalities or clinical features requiring continued observation or admission. RISK STRATIFICATION AND CLINICAL DECISION RULES APPLIED: No formal clinical decision rules were applied in this case as the presentation was consistent with a known recurrent condition (cannabinoid hyperemesis syndrome) with laboratory findings supporting dehydration that responded appropriately to treatment. CASE SUMMARY: 19-year-old male with history of cannabinoid hyperemesis syndrome presented with acute onset of vomiting and body aches after working on a roof. Patient experienced weakness and leg numbness earlier in the day, followed by persistent vomiting. He is a daily cannabis user and recognized his symptoms as consistent with his two prior episodes of CHS. Laboratory studies revealed leukocytosis (WBC 19,000), elevated hemoglobin (17), and elevated BUN (24) and creatinine (1.5), consistent with dehydration. Patient was treated with 2 liters of IV normal saline, 5 mg Haldol, and 5 mg Versed with good response. Upon reassessment, patient reported significant improvement in symptoms and was comfortable with discharge home. Patient was counseled on the importance of discontinuing THC use to prevent recurrence of cannabinoid hyperemesis syndrome. Return precautions were provided. Lab Data I reviewed the patient's lab results. 03/13/25 16:49 03/13/25 16:49 Laboratory Results WBC 19.82 10^3/uL (4.5-13.0) H 03/13/25 16:49 RBC 5.63 10^6/uL (3.85-5.65) 03/13/25 16:49 Hgb 17.10 g/dL (13.2-15.6) H 03/13/25 16:49 Hct 48.8 % (37-53) 03/13/25 16:49 MCV 86.7 fl (82-101) 03/13/25 16:49 MCH 30.4 pg (27-33) 03/13/25 16:49 MCHC 35.0 g/dL (30-55) 03/13/25 16:49 RDW 11.9 % (12.1-15.1) L 03/13/25 16:49 Plt Count 281 10^3/cmm (157-399) 03/13/25 16:49 MPV 10.3 fL (7.4-10.4) 03/13/25 16:49 Neut % (Auto) 86.1 % 03/13/25 16:49 Lymph % (Auto) 6.7 % 03/13/25 16:49 [place] % (Auto) 5.2 % 03/13/25 16:49 Eos % (Auto) 0.0 % 03/13/25 16:49 Baso % (Auto) 0.3 % 03/13/25 16:49 Neut # (Auto) 17.08 10^3/uL (1.8-8.0) H 03/13/25 16:49 Lymph # (Auto) 1.3 10^3/uL (1.5-6.5) L 03/13/25 16:49 [place] # (Auto) 1.0 10^3/uL (0.2-0.9) H 03/13/25 16:49 Eos # (Auto) 0.0 10^3/uL (0.0-0.8) 03/13/25 16:49 Baso # (Auto) 0.1 10^3/uL (0.0-0.1) 03/13/25 16:49 Nucleated RBC % (auto) 0 % 03/13/25 16:49 Nucleated RBCs # 0.0 /100WBC 03/13/25 16:49 Sodium 136 mmol/L (136-145) 03/13/25 16:49 Potassium 3.6 mmol/L (3.5-5.1) 03/13/25 16:49 Chloride 92 mmol/L (98-107) L 03/13/25 16:49 Carbon Dioxide 20 mmol/L (22-29) L 03/13/25 16:49 Anion Gap 27.6 (5-19) H 03/13/25 16:49 BUN 24 mg/dL (6-20) H 03/13/25 16:49 Creatinine 1.5 mg/dL (0.7-1.2) H 03/13/25 16:49 GFR Calculation 59.7 mL/min (90-130) L 03/13/25 16:49 Glucose 151 mg/dL (65-115) H 03/13/25 16:49 Calculated Osmolality 289 mOsm/kg (285-295) 03/13/25 16:49 Calcium 11.2 mg/dL (8.5-10.5) H 03/13/25 16:49 Total Bilirubin 0.8 mg/dL (0.15-1.2) 03/13/25 16:49 AST 24 U/L (0-40) 03/13/25 16:49 ALT 17 U/L (0-41) 03/13/25 16:49 Alkaline Phosphatase 73 U/L (40-130) 03/13/25 16:49 Total Protein 9.1 g/dL (6.6-8.7) H 03/13/25 16:49 Albumin 5.1 g/dL (3.5-5.2) 03/13/25 16:49 Globulin 4.0 g/dL (1.3-4.6) 03/13/25 16:49 No radiology studies performed this visit Discharge Plan Discharge Patient Disposition: Home Clinical Impression: Cannabinoid hyperemesis syndrome, Dehydration Condition: Stable Prescriptions: No Action olanzapine 10 mg tablet,disintegrating 10 mg PO Q8H PRN (Reason: nausea and vomiting) Qty: 10 0RF lorazepam [Ativan] 2 mg tablet 2 mg buccal TID PRN (Reason: nausea and vomiting) Qty: 10 0RF acetaminophen 325 mg Tablet 325 mg PO QID PRN (Reason: Pain) Discharge Orders: Discharge ED (Routine); Ordered 03/13/25 Ordered By: Adan Cooper Discharge Diet: Advance as tolerated Patient Instructions: Acute Nausea and Vomiting (ED), Opioid Safety, Pain Management, Patient Portal & [place]elope Instructions Activity Restrictions/Additional Instructions: DIAGNOSIS: Cannabinoid Hyperemesis Syndrome with Dehydration INSTRUCTIONS: 1. Rest and stay hydrated. Drink plenty of clear fluids such as water, sports drinks, or clear broths. 2. Start with small sips of fluid and bland foods (crackers, toast, rice) when able to tolerate. 3. Avoid cannabis use completely - this is the most important step to prevent recurrence of your symptoms. 4. Avoid hot showers as a coping mechanism as this can lead to further dehydration. 5. Take adoe-vcp-nxjksqy anti-nausea medications as needed according to package directions. RETURN TO THE EMERGENCY DEPARTMENT IF: 1. Vomiting returns and you cannot keep fluids down for more than 6 hours 2. You develop severe abdominal pain 3. You notice blood in your vomit 4. You develop a fever greater than 101?F 5. You experience dizziness, confusion, or extreme weakness FOLLOW-UP: Schedule an appointment with your primary care provider within 1-2 weeks. Print Language: Yoruba Coding Level of Care Code ED Hardwood Finisher for Emir Starks
[2025-03-13 18:48] VITALS: BP 108/62; PULSE 50; O2SAT 98
== END 2025-03-13 18:49 | disposition home or self-care (01) ==
PROVIDERS: Emergency Provider Student in an Organized Health Care Education/Training Program
DX: R11.10 Vomiting, unspecified (principal); F12.90 Cannabis use, unspecified, uncomplicated; E86.0 Dehydration
CPT/HCPCS: 36415; 80053; 85025; 96361; 96374; 96375; 99284; J1630; J2060; J7030

== ENCOUNTER 2025-03-19 18:15 | Emergency (ER) | payer OTHER, SELFPAY ==
--- OUTSIDE RECORDS SUMMARY | 2024-10-28 08:00 | XMS_ITS ---
Author Organization [facility] edicine Address [address] [place] [address] Care Team Providers Care Discovery Manager Name Role Phone Aurea Perez Unavailable [phone] Allergies No Known Allergies REASON FOR VISIT [...] N/A Encounters Encounter Location Date Provider Diagnosis [facility] [address] [place] [address] 10/28/2024 Aureaerika Perez Pre-employment health screening examination [...] Christophe GIANG JDOB: [birth year] (19 yo M)Acc No.[id number]:10/28/2024 PRE EMP HWM Patient: Christophe MILLER Provider: Umesh Perez :2005 A ge:19 Y S ex:Male Date:10/28/2024 Address:[address] [place], [place] [id number] Subjective: * Chief Complaints: * 1 . [...] * A ppearance clear * S pecific [employer] 1.025 * p H 7.0 * G lucose neg * P rotein neg * O ccult Blood trace-intact * B ilirubin neg * U robilinogen,Semi-Qn 0.2 * N itrite, Urine neg * K etones neg * W BC Esterase neg * abnormal resultsHamblin, Corina vernon 10/28/2024 01:40:03 PM DRILLING RIG OPERATOR > * Procedure Orders: * P [...] completed unaidedHamblin, Ab igail 10/28/2024 01:41:59 PM DRILLING RIG OPERATOR > ?Procedure: BTE (Performed Date - 10/28/2024)* Value Reference Range B TE Results Pass * LouiseLi juarez 10/28/2024 03 :22:13 PM DRILLING RIG OPERATOR > Pass * Procedure Codes: P HYSI Physical Exam, BTE Physical Demands Test, HEARS HEARING SCREEN, VISIS VISION SCREEN, 62962 URINALYSIS, AUTO, W/O SCOPE, Modifiers: QW * Follow Up: Jil choi for PDT * Billing Information: * Visit Code: * Procedure Codes: PHYSI Physical Exam. BTE Physical Demands Test. HEARS HEARING SCREEN. VISIS VISION SCREEN. 44519 URINALYSIS, AUTO, W/O SCOPE. Modifiers: QW * Electronic signature of Sandra Perez NP on 03/19/2025 at 06:32 PM CDT Sign off status: Pending * Provider: Umesh Perez Date: 0 10/28/2024 Generated for Marquita suarez/Faxing/eTransmitting on: 0 03/19/2025 06:32 PM CDT History and Physical Notes * HPI (History of Present Illness) Category Sub-Category Detail Notes Category Not es ADDITIONAL COMPLAINTS Patien t presents for pre-employment physical evaluation. Medical history forms and any accompanying health records are reviewed with the patients. Examination Category Sub-Category Detail Notes Category Not es General Examination GENERAL APPEARANCE: in no ac beaver distress, well developed, well nourished HEAD: normocephalic, [...]
[2025-03-19 18:27] VITALS: BP 146/90; PULSE 68; RESP 20; TEMP 36.4; O2SAT 100; BMI 29.8
--- OUTSIDE RECORDS SUMMARY | 2025-03-19 18:32 | XMS_ITS | Continuity of Care Document ---
Author Name [facility] Organization [facility] Care Team Providers Care Glass Laminating Operator Name Role Phone [facility] Unavailable Unavailable Social History Combined list of available smoking, tobacco, and other social history from Department of Defense and Veterans Affairs facilities. Social History Type Response Date Comment Sourc e This section is an empty social history section. DoD
--- OUTSIDE RECORDS SUMMARY | 2025-03-19 18:33 | XMS_ITS | Patient Health Record ---
Author Organization [facility] edicine Address [address] [place] [address] Care Team Providers Care Heel Seam Rubber Name Role Phone Aurea Perez Unavailable [phone] Allergies No Known Allergies Reason For Referral [...] N/A Encounters Encounter Location Date Provider Diagnosis [address] [place] [address] 10/28/2024 Aurea Perez Pre-employment health screening examination [...]
[2025-03-19 19:28] LABS: Hematocrit 46.7 % (37-53); Hemoglobin 16.90 g/dL (13.2-15.6); Mean Corpuscular HGB Conc 36.2 g/dL (30-55); Mean Corpuscular Hemoglobin 31.2 pg (27-33); Mean Corpuscular Volume 86.2 fl (82-101); Nucleated Red Blood Cells % 0 %; Platelet Count 360 10^3/cmm (157-399); Red Blood Count 5.42 10^6/uL (3.85-5.65); White Blood Count 17.28 10^3/uL (4.5-13.0)
[2025-03-19 19:45] LABS: Anion Gap 25.5 (5-19); Aspartate Amino Transferase 19 U/L (0-40); Blood Urea Nitrogen 25 mg/dL (6-20); Calcium 10.9 mg/dL (8.5-10.5); Carbon Dioxide 22 mmol/L (22-29); Chloride 94 mmol/L (98-107); Creatinine Clr Calc Pharmacy 75.4989; Glucose 130 mg/dL (65-115); Lipase 20 U/L (13-60); Osmolality Calculated 292 mOsm/kg (285-295); Potassium 3.5 mmol/L (3.5-5.1); Sodium 138 mmol/L (136-145); Total Protein 8.9 g/dL (6.6-8.7)
[2025-03-19 20:03] LABS: Alanine Aminotransferase 17 U/L (0-41); Albumin Level 5.2 g/dL (3.5-5.2); Alkaline Phosphatase 67 U/L (40-130); Globulin 3.7 g/dL (1.3-4.6)
[2025-03-19 20:48] VITALS: BP 113/78; PULSE 61; RESP 16; O2SAT 100
--- NOTE | 2025-03-19 20:59 | ED_ITS ---
HPI - Nausea/Vomiting/Diarrhea 2 General: Chief complaint: Nausea/Vomiting/Diarrhea Stated complaint: Upper ABD pain N/V Time Seen by Provider: 03/19/25 20:18 Source: patient Mode of arrival: ambulatory Limitations: no limitations History of Present Illness: Patient is a 19-year-old male who presents to ED today with complaint of intractable nausea and vomiting. Patient was seen here approximately 6 days ago for identical symptoms and diagnosed with cannabis hyperemesis syndrome. Patient states he does have a history of this and has had similar cyclic episodes over the past year. He continues to smoke marijuana. He states following his last ED visit he felt better for a day or so . He states he smoked weed again today and began having significant symptoms. He complains of diffuse abdominal pain, nausea, and vomiting. Denies any changes to his bowel movements. Denies hematemesis. No fevers. 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 States today he was out in the heat for almost 12+ hours with temperatures well over 90 degrees. MD elicited complaint: nausea and vomiting Pertinent past history: cyclical vomiting Onset (ago): day(s) Associated nausea: Yes Associated abdominal pain: Yes Location of pain: Diffuse Radiation: diffuse Severity: severe Quality: cramping and sharp Exacerbating factors: none Relieving factors: none Context: marijuana use Associated symtoms: Reports nausea; Denies chest pain, dizziness, dysuria, fatigue, headache(s) or malaise Related Data Home Medications ?Medication ?Instructions ?Recorded ?Confirmed acetaminophen 325 mg tablet 325 mg PO QID PRN Pain 10/10/24 Previous Rx's ?Medication ?Instructions ?Recorded lorazepam 2 mg tablet (Ativan) 2 mg buccal TID PRN [place] and 03/19/25 vomiting #10 tabs olanzapine 10 mg disintegrating 10 mg PO Q8H PRN nause a and 03/19/25 tablet vomiting #10 tabs Allergies Allergy/AdvReac Type Severity Reaction Status Date / Time No Known Allergies Allergy Verified 03/13/25 15:27 Review of Systems 2 Const: Denies: fever(s), chills, body aches, fatigue or malaise ENMT: Denies: throat pain or odynophagia Card: Denies: chest pain Resp: Denies: dyspnea GI: Reports: abdominal pain, nausea and vomiting; Denies: diarrhea, constipation or change in bowel habits : Denies: flank pain, difficulty urinating, dysuria, urinary frequency, urinary urgency or urinary hesitancy Musc: Denies: neck pain, back pain, extremity pain, extremity swelling, joint pain, joint swelling or joint redness Skin/Breast: Denies: rash Neuro: Denies: headache(s), numbness in extremities, weakness in extremities, sensory changes or dizziness PFSH ED 2 PFSH: Medical History No pertinent past medical history Social History Smoking and tobacco/nicotine status: never used tobacco/nicotine Alcohol intake: never Substance/Drug Use: never Physical Exam 2 Const: COMMON NORMALS: average body habitus, patient oriented x3, no limitations, alert and well nourished GENERAL APPEARANCE: cooperative, in distress and ill appearing ORIENTATION/CONSCIOUSNESS: Yes awake, Yes oriented to person, Yes oriented to place and Yes oriented to time HENMT: COMMON NORMALS: normocephalic and atraumatic HEAD & SCALP: normal to inspection, normocephalic and atraumatic Eye: GENERAL EYE: appearance normal, both eyes and all related structures and normal light reflex DIRECT OPHTHALMOSCOPY: Yes normal light reflex Neck/C-Spine: COMMON NORMALS: full ROM, no lymphadenopathy, supple and no meningeal signs Chest: COMMONS NORMALS: normal inspection of the chest Resp: COMMON NORMALS: normal respiratory effort and clear to auscultation bilaterally AUSCULTATION: clear to auscultation bilaterally Cardio: COMMON NORMALS: regular rate and regular rhythm RATE: regular rate RHYTHM: regular rhythm GI: COMMON NORMALS: Normal to inspection, nondistended, normoactive bowel sounds present, Soft to palpation, No hepatosplenomegaly present and no masses INSPECTION: Yes normal to inspection PALPATION: Yes Soft to palpation, Yes Tenderness to palpation present (GI) (diffuse), No Guarding due to palpation present (GI), No Rigid due to palpation and Yes No hepatosplenomegaly present : COMMON NORMALS: Yes no CVA tenderness BLADDER/KIDNEY EXAM: Yes no CVA tenderness Back/Pelvis: COMMON NORMALS: no CVA tenderness and thoracic and lumbar spine normal to inspection Extremity: COMMON NORMALS: normal to inspection GENERAL: Yes normal exam except as noted Neuro: SANDRITA COMA SCALE: document GCS findings Sandrita coma scale eye opening: Spontaneous [place] coma scale verbal response: Orientated Sandrita coma scale motor response: Obey commands Sandrita coma scale total score: 15 COMMON NORMALS: patient oriented x3, moves all extremities, no focal motor deficits and no sensory deficits noted SENSORIUM/ORIENTATION: Yes alert, Yes oriented to person, Yes oriented to place and Yes oriented to time MENINGEAL SIGNS: Yes no meningeal signs Skin: COMMON NORMALS: no rashes or lesions noted GENERAL SKIN EXAM: no rashes or lesions noted Course 2 Reevaluation(s): Reevaluation #1: Patient is sleeping comfortably in NAD. He has not had any episodes of emesis while here. He has had 2L of fluids at this time. Will order repeat CMP. Time: 22:38 Vital Signs: Vital signs: Vital Signs Temperature 97.6 F 03/19/25 18:27 Pulse Rate 47 L 03/19/25 22:28 Respiratory Rate 16 03/19/25 20:48 Blood Pressure 132/98 03/19/25 22:28 Pulse Oximetry 93 03/19/25 22:28 Oxygen Delivery Me thod Room Air 03/19/25 22:28 MDM - Nausea/Vomiting/Diarrhea Medical Decision Making Patient here with intractable nausea and vomiting most likely secondary to cannabinoid hyperemesis syndrome. He was ill-appearing upon arrival. His blood work that had already been completed at time of my examination showed a white count of roughly 17,000 most likely stress related from him vomiting all day. He did have elevations to his BUN/Cr. Looks like his baseline labs for these are roughly 14/0.9. On his ED visit 6 days ago they were elevated to 24/1.5 and today they are 25/1.8. CPK normal. Patient adamantly does not want to be admitted to the hospital. Patient was given Haldol, Ativan, and 2 L of fluids. He has been reassessed multiple times and appears much improved and resting in no acute distress. CMP was repeated and kidney function seem to be improving. Patient again does not want to stay. Recommend continued hydration at home and staying out of the heat tomorrow and over the weekend. Will discharge him home with Ativan and Olanzapine to help control symptoms over the next 2 days. Recommend follow-up with primary care early next week for reevaluation. Return to ED precautions discussed. Medical Records I reviewed the patient's medical records. Lab Data I reviewed the patient's lab results. 03/19/25 19:12 03/19/25 23:07 Laboratory Results WBC 17.28 10^3/uL (4.5-13.0) H 03/19/25 19:12 RBC 5.42 10^6/uL (3.85-5.65) 03/19/25 19:12 Hgb 16.90 g/dL (13.2-15.6) H 03/19/25 19:12 Hct 46.7 % (37-53) 03/19/25 19:12 MCV 86.2 fl (82-101) 03/19/25 19:12 MCH 31.2 pg (27-33) 03/19/25 19:12 MCHC 36.2 g/dL (30-55) 03/19/25 19:12 RDW 12.2 % (12.1-15.1) 03/19/25 19:12 Plt Count 360 10^3/cmm (157-399) 03/19/25 19:12 MPV 10.3 fL (7.4-10.4) 03/19/25 19:12 Neut % (Auto) 76.2 % 03/19/25 19:12 Lymph % (Auto) 15.7 % 03/19/25 19:12 [place] % (Auto) 6.5 % 03/19/25 19:12 Eos % (Auto) 0.1 % 03/19/25 19:12 Baso % (Auto) 0.4 % 03/19/25 19:12 Neut # (Auto) 13.16 10^3/uL (1.8-8.0) H 03/19/25 19:12 Lymph # (Auto) 2.7 10^3/uL (1.5-6.5) 03/19/25 19:12 [place] # (Auto) 1.1 10^3/uL (0.2-0.9) H 03/19/25 19:12 Eos # (Auto) 0.0 10^3/uL (0.0-0.8) 03/19/25 19:12 Baso # (Auto) 0.1 10^3/uL (0.0-0.1) 03/19/25 19:12 Nucleated RBC % (auto) 0 % 03/19/25 19:12 Nucleated RBCs # 0.0 /100WBC 03/19/25 19:12 Sodium 139 mmol/L (136-145) 03/19/25 23:07 Potassium 3.8 mmol/L (3.5-5.1) 03/19/25 23:07 Chloride 101 mmol/L (98-107) 03/19/25 23:07 Carbon Dioxide 23 mmol/L (22-29) 03/19/25 23:07 Anion Gap 18.8 (5-19) 03/19/25 23:07 BUN 23 mg/dL (6-20) H 03/19/25 23:07 Creatinine 1.5 mg/dL (0.7-1.2) H 03/19/25 23:07 GFR Calculation 59.7 mL/min (90-130) L 03/19/25 23:07 Glucose 114 mg/dL (65-115) 03/19/25 23:07 Calculated Osmolality 293 mOsm/kg (285-295) 03/19/25 23:07 Calcium 9.0 mg/dL (8.5-10.5) 03/19/25 23:07 Total Bilirubin 0.6 mg/dL (0.15-1.2) 03/19/25 23:07 AST 14 U/L (0-40) 03/19/25 23:07 ALT 14 U/L (0-41) 03/19/25 23:07 Alkaline Phosphatase 55 U/L (40-130) 03/19/25 23:07 Creatine Kinase 265 U/L (39-308) 03/19/25 21:38 Total Protein 7.4 g/dL (6.6-8.7) 03/19/25 23:07 Albumin 4.5 g/dL (3.5-5.2) 03/19/25 23:07 Globulin 2.9 g/dL (1.3-4.6) 03/19/25 23:07 Lipase 20 U/L (13-60) 03/19/25 19:12 Urine Color Dark yellow (Yellow) A 03/19/25 22:26 Urine Appearance Clear (CLEAR) 03/19/25 22:26 Urine pH 5.5 (5-7) 03/19/25 22: Ur Specific [place] 1.038 (1.005-1.030) H 03/19/25 22: Urine Protein 1+ (Negative) A 03/19/25 22: Urine Glucose (UA) Negative (Normal) 03/19/25 22: Urine Ketones 3+ (Negative) H 03/19/25 22:26 Urine Blood Negative (Negative) 03/19/25 22: Urine Nitrate Negative (Negative) 03/19/25 22: Urine Bilirubin Negative (Negative) 03/19/25 22: Urine Urobilinogen 1.0 mg/dL (Negative) 03/19/25 22: Ur Leukocyte Esterase Negative (Negative) 03/19/25 22: Urine RBC 0-2 /hpf (0-2) 03/19/25 22: Urine WBC 0-5 /hpf (0-5) 03/19/25 22: Ur Squamous Epith Cells 0-5 /hpf (0-5) 03/19/25 22: Amorphous Sediment Not Reportable 03/19/25 22:26 Urine Bacteria None seen /hpf (NONE) 03/19/25 22: Hyaline Casts 45.90 /lpf 03/19/25 22:26 Urine Opiates Screen Negative ng/mL (Negative) 03/19/25 22: Ur Barbiturates Screen Negative ng/mL (Negative) 03/19/25 22:26 Ur Phencyclidine Scrn Negative ng/mL (Negative) 03/19/25 22:26 Ur Amphetamines Screen Negative ng/mL (Negative) 03/19/25 22:26 U Benzodiazepines Scrn Negative ng/mL (Negative) 03/19/25 22:26 Urine Cocaine Screen Negative ng/mL (Negative) 03/19/25 22: U Marijuana (THC) Screen Positive ng/mL (Negative) H 03/19/25 22: No radiology studies performed this visit Discharge Plan Discharge Patient Disposition: Home Clinical Impression: Cannabinoid hyperemesis syndrome Condition: Stable Prescriptions: Continued lorazepam [Ativan] 2 mg tablet 2 mg buccal TID PRN (Reason: nausea and vomiting) Qty: 10 0RF olanzapine 10 mg tablet,disintegrating 10 mg PO Q8H PRN (Reason: nausea and vomiting) Qty: 10 0RF No Action acetaminophen 325 mg Tablet 325 mg PO QID PRN (Reason: Pain) Discharge Orders: Discharge ED (Routine); Ordered 03/19/25 Ordered By: Mariely Calvo Patient Instructions: Cyclic Vomiting Syndrome (ED), Patient Portal & [place] Instructions Print Language: Jamaican Coding Level of Care Code 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
[2025-03-19] MEDS: haloperidol inj 5 mg/mL INJ 1 mL 2.5 MG IVP (21:12)
[2025-03-19] MEDS: LORazepam 1 MG/0.5 ML injection IVP (21:13)
[2025-03-19 21:16] VITALS: PULSE 50; O2SAT 100
[2025-03-19 21:21] VITALS: BP 135/91; O2SAT 100
[2025-03-19 22:28] VITALS: BP 132/98; PULSE 47; O2SAT 93
[2025-03-19 22:34] LABS: Glucose Urine UA Negative (Normal); Nitrate Urine Negative (Negative)
[2025-03-19 22:36] LABS: Add Urine Microscopic? YES; Universal Test for UA Present (0)
[2025-03-19 22:42] LABS: PCP Screen Urine Negative (Negative)
[2025-03-19 22:47] LABS: Specific Gravity, Urine 1.038 (1.005-1.030); UA Slide Review UA Slide Review Perf
[2025-03-19 23:31] LABS: Alanine Aminotransferase 14 U/L (0-41); Albumin Level 4.5 g/dL (3.5-5.2); Alkaline Phosphatase 55 U/L (40-130); Anion Gap 18.8 (5-19); Aspartate Amino Transferase 14 U/L (0-40); Blood Urea Nitrogen 23 mg/dL (6-20); Calcium 9.0 mg/dL (8.5-10.5); Carbon Dioxide 23 mmol/L (22-29); Chloride 101 mmol/L (98-107); Creatinine Clr Calc Pharmacy 90.5987; Globulin 2.9 g/dL (1.3-4.6); Glucose 114 mg/dL (65-115); Osmolality Calculated 293 mOsm/kg (285-295); Potassium 3.8 mmol/L (3.5-5.1); Sodium 139 mmol/L (136-145); Total Protein 7.4 g/dL (6.6-8.7)
[2025-03-19 23:59] VITALS: BP 149/84; PULSE 58; O2SAT 98
== END 2025-03-20 00:02 | disposition home or self-care (01) ==
PROVIDERS: Emergency Medicine; Nurse Practitioner; Emergency Provider Physician Assistant
DX: R11.2 Nausea with vomiting, unspecified (principal); F12.90 Cannabis use, unspecified, uncomplicated
CPT/HCPCS: 36415; 80053; 80306; 81001; 82550; 83690; 85025; 96361; 96374; 96375; 99284; J1630; J2060; J7030

== ENCOUNTER → 2025-04-07 14:55 | Outpatient (BNVA) | payer OTHER, SELFPAY | PROVIDERS: Visit Provider Orthopaedic Surgery | DX: S42.022P Displaced fracture of shaft of left clavicle, subsequent encounter for fracture with malunion (principal); X58.XXXD Exposure to other specified factors, subsequent encounter; Z87.81 Personal history of (healed) traumatic fracture | CPT/HCPCS: 73000 ==

== ENCOUNTER 2025-04-15 07:55 | Outpatient (CLI) | payer OTHER, SELFPAY ==
--- NOTE | 2025-04-15 08:00 | CT_ITS ---
WS: [id number] CT LEFT SHOULDER, NONCONTRAST HISTORY: Hx clavicle fx Technique: All CT scans at [facility] use at least one of these dose optimization techniques: automated exposure control; mA and/or kV adjustment per patient size (includes targeted exams where dose is matched to clinical indication); or iterative reconstruction. DLP: 453.54 mGy.cm COMPARISON: Radiograph 04/07/2025 No acute clavicle fracture. Hypertrophic bone formation with deformity in the mid clavicle from prior healed fracture. There is mild bony prominence. The sternoclavicular joint appears appropriate. Minimal narrowing of the AC joint. Os acromion is noted. No displacement of the os acromiale. Normal appearance of the glenohumeral joint. No osseous destructive process is identified. No muscle atrophy. No adenopathy. Visualized LEFT lung is clear. CT/CT shoulder LT wo con* [id number] IMPRESSION: 1. Hypertrophic bone formation from a remote healed mid LEFT clavicular fractu re. No complications evident. 2. Persistent os acromiale. These will typically fused by 25 years of age. The se can be symptomatic if there is mobility.
== END 2025-04-15 07:56 | disposition home or self-care (01) ==
LOC: RAD 07:56
PROVIDERS: Visit Provider Orthopaedic Surgery
DX: Z09 Encounter for follow-up examination after completed treatment for conditions other than malignant neoplasm (principal); Z87.81 Personal history of (healed) traumatic fracture
CPT/HCPCS: 73200

== ENCOUNTER 2025-06-21 13:32 | Emergency (ER) | payer OTHER, SELFPAY ==
--- OUTSIDE RECORDS SUMMARY | 2024-10-28 08:00 | XMS_ITS ---
Author Organization [employer] [facility] edicine Address [address] [place] [address] Care Team Providers Care Coding Assistant Name Role Phone Aurea Perez Unavailable [phone] Allergies No Known Allergies REASON FOR VISIT [...] N/A Encounters Encounter Location Date Provider Diagnosis [facility] [address] [place] [address] 10/28/2024 Aureaerika Perez Pre-employment health screening examination [...] Christophe GIANG JDOB: [birth year] (19 yo M)Acc No.[id number]:10/28/2024 PRE EMP HWM Patient: Christophe MILLER Provider: Umesh Perez :2005 A ge:19 Y S ex:Male Date:10/28/2024 Address:[address] [place], [place] [id number] Subjective: * Chief Complaints: * 1 . [...] * A ppearance clear * S pecific [place] 1.025 * p H 7.0 * G lucose neg * P rotein neg * O ccult Blood trace-intact * B ilirubin neg * U robilinogen,Semi-Qn 0.2 * N itrite, Urine neg * K etones neg * W BC Esterase neg * abnormal resultsHamblin, Corina vernon 10/28/2024 01:40:03 PM WATER QUALITY ANALYST > * Procedure Orders: * P rocedure: [...] completed unaidedHamblin, Ab igail 10/28/2024 01:41:59 PM WATER QUALITY ANALYST > ?Procedure: BTE (Performed Date - 10/28/2024)* Value Reference Range B TE Results Pass * Li Louise 10/28/2024 03 :22:13 PM WATER QUALITY ANALYST > Pass * Procedure Codes: P HYSI Physical Exam, BTE Physical Demands Test, HEARS HEARING SCREEN, VISIS VISION SCREEN, 82194 URINALYSIS, AUTO, W/O SCOPE, Modifiers: QW * Follow Up: Jil choi for PDT * Billing Information: * Visit Code: * Procedure Codes: PHYSI Physical Exam. BTE Physical Demands Test. HEARS HEARING SCREEN. VISIS VISION SCREEN. 93423 URINALYSIS, AUTO, W/O SCOPE. Modifiers: QW * Electronic signature of Sandra Perez NP on 06/21/2025 at 01:35 PM CDT Sign off status: Pending * Provider: Umesh Perez Date: 0 10/28/2024 Generated for Marquita suarez/Faxing/eTransmitting on: 1 01:35 PM CDT History and Physical Notes * HPI (History of Present Illness) Category Sub-Category Detail Notes Category Not es ADDITIONAL COMPLAINTS Patien t presents for pre-employment physical evaluation. Medical history forms and any accompanying health records are reviewed with the patients. Examination Category Sub-Category Detail Notes Category Not es General Examination GENERAL APPEARANCE: in no ac yosi distress, well developed, well nourished HEAD: normocephalic, [...]
--- OUTSIDE RECORDS SUMMARY | 2025-06-21 13:36 | XMS_ITS | Patient Health Record ---
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
[2025-06-21 13:56] VITALS: PULSE 44; RESP 24; TEMP 36.3; O2SAT 100
[2025-06-21 14:16] LABS: Hematocrit 48.1 % (37-53); Hemoglobin 16.30 g/dL (13.2-15.6); Mean Corpuscular HGB Conc 33.9 g/dL (30-55); Mean Corpuscular Hemoglobin 30.6 pg (27-33); Mean Corpuscular Volume 90.4 fl (82-101); Nucleated Red Blood Cells % 0 %; Platelet Count 277 10^3/cmm (157-399); Red Blood Count 5.32 10^6/uL (3.85-5.65); White Blood Count 17.31 10^3/uL (4.5-13.0)
[2025-06-21 14:33] LABS: Alanine Aminotransferase 17 U/L (0-41); Albumin Level 5.3 g/dL (3.5-5.2); Alkaline Phosphatase 54 U/L (40-130); Anion Gap 23.1 (5-19); Aspartate Amino Transferase 18 U/L (0-40); Blood Urea Nitrogen 12 mg/dL (6-20); Calcium 10.2 mg/dL (8.5-10.5); Carbon Dioxide 22 mmol/L (22-29); Chloride 100 mmol/L (98-107); Creatinine Clr Calc Pharmacy 172.5183; Globulin 3.0 g/dL (1.3-4.6); Glucose 134 mg/dL (65-115); Lipase 15 U/L (13-60); Osmolality Calculated 294 mOsm/kg (285-295); Potassium 4.1 mmol/L (3.5-5.1); Sodium 141 mmol/L (136-145); Total Protein 8.3 g/dL (6.6-8.7)
--- NOTE | 2025-06-21 15:06 | W.ED.NAVMDI ---
HPI - Nausea/Vomiting/Diarrhea General: Chief complaint: Nausea/Vomiting/Diarrhea Stated complaint: abd pain and n/v Time Seen by Provider: 06/21/25 15:03 Source: patient Mode of arrival: ambulatory Limitations: no limitations History of Present Illness: 19-year-old male has a history of cyclic vomiting he states from marijuana use. States he has been using marijuana recently has been having multiple episode of vomiting since this morning. States he is probably vomited over 20 times. He denies any fever this is abdominal cramping denies any severe pain. Denies any diarrhea. Associated nausea: Yes Associated symtoms: Reports nausea Related Data Home Medications ?Medication ?Instructions ?Recorded ?Confirmed acetaminophen 325 mg tablet 325 mg PO QID PRN Pain 10/10/24 04/21/25 Previous Rx's ?Medication ?Instructions ?Recorded lorazepam 2 mg tablet (Ativan) 2 mg buccal TID PRN nausea and 03/19/25 vomiting #10 tabs olanzapine 10 mg disintegrating 10 mg PO Q8H PRN nausea and 03/19/25 tablet vomiting #10 tabs Bone Growth stimulator #1 ea 04/21/25 ondansetron 4 mg disintegrating 4 mg PO Q6H PRN nausea and 06/21/25 tablet vomiting #14 tabs Allergies Allergy/AdvReac Type Severity Reaction Status Date / Time No Known Allergies Allergy Verified 04/21/25 15:02 Review of Systems GI: Reports: nausea and vomiting [facility] ED PFSH: Medical History No pertinent past medical history Social History Smoking and tobacco/nicotine status: current every day tobacco/nicotine user Alcohol intake: never Substance/Drug Use: never Physical Exam Const: COMMON NORMALS: no acute distress, patient oriented x3 and healthy appearing HENMT: COMMON NORMALS: normocephalic and atraumatic HEAD & SCALP: normocephalic and atraumatic Neck/C-Spine: COMMON NORMALS: full ROM and supple Chest: COMMONS NORMALS: normal inspection of the chest and normal palpation of entire chest wall Resp: COMMON NORMALS: normal respiratory effort, No retractions, No use of accessory muscles and clear to auscultation bilaterally AUSCULTATION: clear to auscultation bilaterally Cardio: COMMON NORMALS: regular rate, regular rhythm and No murmurs present (Cardio) RATE: regular rate RHYTHM: regular rhythm GI: COMMON NORMALS: Normal to inspection, nondistended, normoactive bowel sounds present, Soft to palpation, non-tender and no masses PALPATION: Yes Soft to palpation Extremity: COMMON NORMALS: normal to inspection and full ROM Neuro: COMMON NORMALS: patient oriented x3, moves all extremities and no focal motor deficits Psych: COMMON NORMALS: mental status grossly normal, Normal thought process present and cooperative THOUGHT PROCESS: Normal thought process present Skin: COMMON NORMALS: no rashes or lesions noted and no wounds GENERAL SKIN EXAM: no rashes or lesions noted Course Vital Signs: Vital signs: Vital Signs Temperature 97.4 F L 06/21/25 13:56 Pulse Rate 49 L 06/21/25 15:34 Respiratory Rate 24 H 06/21/25 13:56 Blood Pressure 125/87 06/21/25 15:34 Pulse Oximetry 95 06/21/25 15:34 Oxygen Delivery Me thod Room Air 06/21/25 15:34 MDM - Nausea/Vomiting/Diarrhea Medical Decision Making Patient presents for nausea and vomiting no abdominal pain. He has a history of cyclic vomiting syndrome from smoking marijuana is likely causing his vomiting. He has no tenderness on exam no signs of appendicitis or pancreatitis. His lipase and electrolytes here are normal does have a slightly elevated white count that is likely reactive in nature. He feels much improved here after Reglan and Benadryl was able to tolerate p.o. He is stable for discharge we will prescribe him Zofran for home. Did review his labs with him his follow-up his PCP and return if worsening he understands agrees to plan. Medical Records I reviewed the patient's medical records. Lab Data I reviewed the patient's lab results. 06/21/25 14:10 06/21/25 14:10 Laboratory Results WBC 17.31 10^3/uL (4.5-13.0) H 06/21/25 14:10 RBC 5.32 10^6/uL (3.85-5.65) 06/21/25 14:10 Hgb 16.30 g/dL (13.2-15.6) H 06/21/25 14:10 Hct 48.1 % (37-53) 06/21/25 14:10 MCV 90.4 fl (82-101) 06/21/25 14:10 MCH 30.6 pg (27-33) 06/21/25 14:10 MCHC 33.9 g/dL (30-55) 06/21/25 14:10 RDW 12.4 % (12.1-15.1) 06/21/25 14:10 Plt Count 277 10^3/cmm (157-399) 06/21/25 14:10 MPV 10.7 fL (7.4-10.4) H 06/21/25 14:10 Neut % (Auto) 86.5 % 06/21/25 14:10 Lymph % (Auto) 8.0 % 06/21/25 14:10 [place] % (Auto) 4.3 % 06/21/25 14:10 Eos % (Auto) 0.1 % 06/21/25 14:10 Baso % (Auto) 0.2 % 06/21/25 14:10 Neut # (Auto) 14.96 10^3/uL (1.8-8.0) H 06/21/25 14:10 Lymph # (Auto) 1.4 10^3/uL (1.5-6.5) L 06/21/25 14:10 [place] # (Auto) 0.8 10^3/uL (0.2-0.9) 06/21/25 14:10 Eos # (Auto) 0.0 10^3/uL (0.0-0.8) 06/21/25 14:10 Baso # (Auto) 0.0 10^3/uL (0.0-0.1) 06/21/25 14:10 Nucleated RBC % (auto) 0 % 06/21/25 14:10 Nucleated RBCs # 0.0 /100WBC 06/21/25 14:10 Sodium 141 mmol/L (136-145) 06/21/25 14:10 Potassium 4.1 mmol/L (3.5-5.1) 06/21/25 14:10 Chloride 100 mmol/L (98-107) 06/21/25 14:10 Carbon Dioxide 22 mmol/L (22-29) 06/21/25 14:10 Anion Gap 23.1 (5-19) H 06/21/25 14:10 BUN 12 mg/dL (6-20) 06/21/25 14:10 Creatinine 0.8 mg/dL (0.7-1.2) 06/21/25 14:10 GFR Calculation 123.2 mL/min (90-130) 06/21/25 14:10 Glucose 134 mg/dL (65-115) H 06/21/25 14:10 Calculated Osmolality 294 mOsm/kg (285-295) 06/21/25 14:10 Calcium 10.2 mg/dL (8.5-10.5) 06/21/25 14:10 Total Bilirubin 0.8 mg/dL (0.15-1.2) 06/21/25 14:10 AST 18 U/L (0-40) 06/21/25 14:10 ALT 17 U/L (0-41) 06/21/25 14:10 Alkaline Phosphatase 54 U/L (40-130) 06/21/25 14:10 Total Protein 8.3 g/dL (6.6-8.7) 06/21/25 14:10 Albumin 5.3 g/dL (3.5-5.2) H 06/21/25 14:10 Globulin 3.0 g/dL (1.3-4.6) 06/21/25 14:10 Lipase 15 U/L (13-60) 06/21/25 14:10 No radiology studies performed this visit Discharge Plan Discharge Patient Disposition: Home Clinical Impression: Vomiting Qualifiers: Vomiting type: unspecified Nausea presence: with nausea Qualified Code(s): R11.2 - Nausea with vomiting, unspecified Condition: Stable Prescriptions: New ondansetron 4 mg tablet,disintegrating 4 mg PO Q6H PRN (Reason: nausea and vomiting) Qty: 14 0RF No Action (DME) Bone Growth stimulator See Rx Instructions .Route .MEDSUPPLY Qty: 1 0RF Rx Instructions: As directed acetaminophen 325 mg Tablet 325 mg PO QID PRN (Reason: Pain) lorazepam [Ativan] 2 mg tablet 2 mg buccal TID PRN (Reason: nausea and vomiting) Qty: 10 0RF olanzapine 10 mg tablet,disintegrating 10 mg PO Q8H PRN (Reason: nausea and vomiting) Qty: 10 0RF Discharge Orders: Discharge ED (Routine); Ordered 06/21/25 Ordered By: Omar Owens Discharge Diet: Advance as tolerated Discharge Activity: Resume usual activity Patient Instructions: Acute Nausea and Vomiting (ED) Print Language: Anguillan Coding Level of Care Code 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
[2025-06-21] MEDS: diphenhydrAMINE 50 mg/mL SDV 1mL IVP (15:33)
[2025-06-21 15:34] VITALS: BP 125/87; PULSE 49; O2SAT 95
[2025-06-21] MEDS: metoclopramide 5 mg/mL SDV 2 mL 10 MG IVP (15:34)
== END 2025-06-21 16:18 | disposition home or self-care (01) ==
PROVIDERS: Emergency Provider Emergency Medicine
DX: R11.2 Nausea with vomiting, unspecified (principal); Z72.0 Tobacco use
CPT/HCPCS: 36415; 80053; 83690; 85025; 96361; 96374; 96375; 99284; J1200; J2765; J7030